=== PATIENT | female | born 1995 | race Hispanic/Latino ===

== ENCOUNTER 2017-04-02 13:44 | Emergency (ER) | payer OTHER ==
[2017-04-02 13:44] VITALS: BMI 44.7
[2017-04-02 14:11] VITALS: BP 137/85; RESP 18
[2017-04-02] MEDS ORDERED: Sodium Chloride 0.9% 500 ML IV STA (14:31)
--- NOTE | 2017-04-02 14:34 | ED PDOC ---
Arrival/HPI - General Historian: Patient - History of Present Illness Time/Duration: 1 week Symptom Onset: Sudden Symptom Course: Unchanged Quality: Unable to Describe Severity Level: Mild, Moderate - General Chief Complaint: Abdominal Pain Time Seen by Provider: 04/02/17 14:14 - History of Present Illness Narrative History of Present Illness (Text): 04/02/17 14:32 21F w/PMH sig for psoriasis, morbid obesity evaluated for emesis x 1 wk. Pt reports sudden onset of emesis with food intake, emesis is nbnb, only food items. Able to tolerate water intake. Admits to occasional nausea, has had similar episode in the past related to starving herself then eating. Denies F/C , SOB, CP, anorexia prior to event, ab pain, numbness or tingling, other complaints. PMH: Psoriasis, morbid obesity PSH: Denies ALl: Zofran (rash) SH: Admits to ETOH use (1-2 drinks per wk), admits to tobacco use- 1/2ppd x 2 yrs, denies illicit drug use PMD: Denies (Henny Avila) Past Medical History - Provider Review Nursing Documentation Reviewed: Yes - Cardiac Hx Cardiac Disorders: No - Pulmonary Hx Respiratory Disorders: No - Neurological Hx Neurological Disorder: No - HEENT Hx HEENT Disorder: No - Renal Hx Renal Disorder: No - Endocrine/Metabolic Hx Endocrine Disorders: No - Hematological/Oncological Hx Blood Disorders: No - Integumentary Hx Dermatological Disorder: No - Musculoskeletal/Rheumatological Hx Musculoskeletal Disorders: No - Gastrointestinal Hx Gastrointestinal Disorders: No - Genitourinary/Gynecological Hx Genitourinary Disorders: No - Psychiatric Hx Psychophysiologic Disorder: No Hx Substance Use: No Family/Social History - Physician Review Nursing Documentation Reviewed: Yes Family/Social History: No Known Family HX Smoking Status: Light Smoker < 10 Cigarettes Daily Hx Alcohol Use: No Hx Substance Use: No Allergies/Home Meds Allergies/Adverse Reactions: Allergies ondansetron HCl [From Zofran (as hydrochloride)] Adverse Reaction (Verified 10:17) Review of Systems - Review of Systems Constitutional: Normal. absent: Fatigue, Fevers Eyes: Vision Changes. absent: Normal ENT: Normal. absent: Sore Throat, Rhinorrhea Respiratory: Normal. absent: SOB Cardiovascular: Normal. absent: Chest Pain Gastrointestinal: Nausea, Vomiting, Food Intolerance. absent: Normal, Abdominal Pain, Constipation, Diarrhea, Hematochezia, Hematemesis Genitourinary Female: Frequency. absent: Normal, Dysuria, Hematuria Musculoskeletal: Normal. absent: Back Pain Skin: Rash (psoriasis). absent: Normal Neurological: Headache (nightly), Dizziness (occasional) Endocrine: Polyuria Physical Exam Vital Signs Reviewed: Yes Temperature: Afebrile Blood Pressure: Normal Pulse: Regular Respiratory Rate: Normal Appearance: Positive for: Non-Toxic, Comfortable Pain Distress: None Mental Status: Positive for: Alert and Oriented X 3 - Systems Exam Head: Present: Atraumatic, Normocephalic Extroacular Muscles: Present: EOMI Conjunctiva: Present: Normal Mouth: Present: Moist Mucous Membranes Nose (External): Present: Atraumatic Neck: Present: Normal Range of Motion Respiratory/Chest: Present: Clear to Auscultation, Good Air Exchange. No: Respiratory Distress, Accessory Muscle Use Cardiovascular: Present: Regular Rate and Rhythm, Normal S1, S2. No: Murmurs Abdomen: Present: Tenderness (mild, suprapubic), Normal Bowel Sounds. No: Distention (obese), Peritoneal Signs, Rebound, Guarding, Hernias Back: Present: Normal Inspection. No: CVA Tenderness Upper Extremity: Present: Normal Inspection. No: Cyanosis, Edema Lower Extremity: Present: Normal Inspection. No: Edema Neurological: Present: GCS=15, CN II-XII Intact, Speech Normal Skin: Present: Warm, Dry, Rashes (lesion on anterior aspect of LLE), Normal Color Psychiatric: Present: Alert, Oriented x 3, Normal Insight, Normal Concentration Vital Signs Temp Pulse Resp BP Pulse Ox 04/02/17 17:12 97.9 F 77 18 100 04/02/17 14:00 98.7 F 90 18 137/85 97 Medical Decision Making ED Course and Treatment: 04/02/17 14:40 Pt seen/evaluated, will evaluate for , UTI, and chemical imbalances. 04/02/17 15:58 lab work WNL. Discussed case with ED attending. Will d/c home on pepcid with dietary modification recommendations and recommendation to FU with the [facility] clinic or a PMD of her choosing. (Henny Avila) abdomen is bengin on my exam and the pt denies any abdominal pain or nausea at this time. do not feel imaging is warranted at this time but encouraged the pt to return should her sx recur. (Cristi Penny) - Lab Interpretations Lab Results: 04/02/17 14:50 04/02/17 14:50 Lab Results 04/02/17 14:50: Beta HCG, Quant < 2.39 04/02/17 14:50: Sodium 141, Potassium 4.4, Chloride 101, Carbon Dioxide 31, Anion Gap 13, BUN 13, Creatinine 0.6 L, Est GFR ( Amer) > 60, Est GFR ( Non-Af Amer) > 60, Random Glucose 100, Calcium 9.6, Total Bilirubin 0.4, AST 27 , ALT 44, Alkaline Phosphatase 83, Total Protein 7.4, Albumin 4.3, Globulin 3.0 , Albumin/Globulin Ratio 1.4, Lipase 41 04/02/17 14:50: WBC 9.2, RBC 4.59, Hgb 13.7, Hct 41.2, MCV 89.8, MCH 29.8, MCHC 33.3, RDW 12.8, Plt Count 345, MPV 9.5, Gran % 60.7, Lymph % (Auto) 29.5, [place] % (Auto) 5.2, Eos % (Auto) 4.3, Baso % (Auto) 0.3, Gran # 5.59, Lymph # 2.7, [place] # 0.5, Eos # 0.4, Baso # 0.03 04/02/17 14:00: Urine Color Yellow, Urine Appearance Sl cloudy, Urine pH 6.0, Ur Specific [place] >= 1.030, Urine Protein Negative, Urine Glucose (UA) Negative, Urine Ketones Negative, Urine Blood Trace-intact H, Urine Nitrate Negative, Urine Bilirubin Negative, Urine Urobilinogen 0.2, Ur Leukocyte Esterase Trace H, Urine RBC 0 - 2, Urine WBC 0 - 2, Ur Epithelial Cells 1 - 3 - Medication Orders Current Medication Orders: Discontinued Medications Sodium Chloride (Sodium Chloride 0.9%) 500 mls @ 999 mls/hr IV .Q31M STA Stop: 04/02/17 15:01 Last Admin: 04/02/17 14:44 Dose: 999 mls/hr eMAR Start Stop Document 04/02/17 14:44 TN (Rec: 04/02/17 14:44 [place] [id number]) Intravenous Solution Start Date 04/02/17 Start Time 14:44 Sodium Chloride (Sodium Chloride 0.9%) 1,000 mls @ 999 mls/hr IV .Q1H1M STA Stop: 04/02/17 16:37 Last Admin: 04/02/17 15:47 Dose: 999 mls/hr eMAR Start Stop Document 04/02/17 15:47 EQ (Rec: 04/02/17 15:47 EQ [id number]) Intravenous Solution Start Date 04/02/17 Start Time 15:47 Disposition/Present on Arrival - Present on Arrival Any Indicators Present on Arrival: No History of DVT/PE: No History of Uncontrolled Diabetes: No Urinary Catheter: No History of Decub. Ulcer: No History Surgical Site Infection Following: None - Disposition Have Diagnosis and Disposition been Completed?: Yes Disposition Time: 15:47 Patient Plan: Discharge - Disposition Diagnosis: Nausea & vomiting, Nonspecific abdominal pain Disposition: HOME/ ROUTINE Condition: STABLE Discharge Instructions (ExitCare): Low Fat Diet (DC), Weight Management (ED), Acute Nausea and Vomiting (ED), DASH Eating Plan (ED) Additional Instructions: Please follow a low fat, high fiber, lots of vegetables, moderate amount of fruits and lots of water diet for at least 2 weeks. Avoid fatty foods (e.g. pizza). You are being discharged on an antacid medication, please take for 2 weeks. Follow up with the Clinic for further evaluation. Prescriptions: Famotidine [Pepcid] 20 mg PO DAILY #14 tab Referrals: PCP,NO [Primary Care Provider] - Follow up with primary [facility] [place] - Follow up with primary [facility] [Outside] - Follow up with primary Forms: [employer] (Chinese), WORK NOTE
[2017-04-02 15:00] LABS: URINE BILIRUBIN NEGATIVE (NEGATIVE); URINE BLOOD TRACE-INTACT (NEGATIVE); URINE GLUCOSE (UA) NEGATIVE (NEGATIVE); URINE KETONE NEGATIVE (NEGATIVE); URINE LEUKOCYTE ESTERASE TRACE Leu/uL (NEGATIVE); URINE PROTEIN NEGATIVE mg/dL (<30 mg/dL); URINE UROBILINOGEN 0.2 E.U./dL (<1 E.U./dL)
[2017-04-02 15:04] LABS: BASO # 0.03 K/mm3 (0.0-2.0); BASO % 0.3 % (0.0-3.0); EOS # 0.4 (0.0-0.7); EOS % 4.3 % (1.5-5.0); GRAN # 5.59 (1.4-6.5); GRAN % 60.7 % (50.0-68.0); HEMATOCRIT 41.2 % (36.0-48.0); LYMPH # 2.7 (1.2-3.4); LYMPH % 29.5 % (22.0-35.0); MEAN CELL VOLUME 89.8 fl (80.0-105.0); MEAN CORPUSCULAR HEMOGLOBIN 29.8 pg (25.0-35.0); MEAN CORPUSCULAR HGB CONC 33.3 g/dl (31.0-37.0); MEAN PLATELET VOLUME 9.5 fl (7.0-11.0); MONO # 0.5 (0.1-0.6); MONO % 5.2 % (1.0-6.0); RED CELL DISTRIBUTION WIDTH 12.8 % (11.5-14.5); WHITE BLOOD COUNT 9.2 10^3/ul (4.5-11.0)
[2017-04-02 15:04] LABS: URINE APPEARANCE SL CLOUDY (CLEAR); URINE COLOR YELLOW (YELLOW)
[2017-04-02 15:12] LABS: URINE RBC 0 - 2 /hpf (0-2); URINE WBC 0 - 2 /hpf (0-6)
[2017-04-02 15:18] LABS: ALB/GLOB RATIO 1.4 (1.1-1.8); ALKALINE PHOSPHATASE 83 U/L (38-126); ALT/SGPT 44 U/L (7-56); AST/SGOT 27 U/L (14-36); BILIRUBIN,TOTAL 0.4 mg/dL (0.2-1.3); BLOOD UREA NITROGEN 13 mg/dL (7-21); CALCIUM 9.6 mg/dL (8.4-10.5); CARBON DIOXIDE 31 mmol/L (21-33); CHLORIDE 101 mmol/L (98-107); GFR AFRICAN-AMERICAN > 60; GLUCOSE,RANDOM 100 mg/dL (70-110); LIPASE 41 U/L (23-300); POTASSIUM 4.4 mmol/L (3.6-5.0); SODIUM 141 mmol/L (132-148); TOTAL PROTEIN 7.4 g/dL (5.8-8.3)
[2017-04-02] MEDS ORDERED: Sodium Chloride 0.9% 1,000 ML IV STA (15:37)
[2017-04-02 17:14] VITALS: PULSE 77; TEMP 97.9; O2SAT 100
== END 2017-04-02 17:32 | disposition home or self-care (01) ==
LOC: ED 13:44
DX: R10.9 Unspecified abdominal pain (principal); R11.2 Nausea with vomiting, unspecified; E66.01 Morbid (severe) obesity due to excess calories; F17.210 Nicotine dependence, cigarettes, uncomplicated
CPT/HCPCS: 80053; 81001; 83690; 84702; 85025; 99284; J7040

== ENCOUNTER 2017-06-28 17:10 | Emergency (ER) | payer OTHER ==
[2017-06-28 17:36] VITALS: RESP 18; TEMP 98.6; BMI 39.9
--- NOTE | 2017-06-28 20:08 | ED PDOC ---
Arrival/HPI - General Chief Complaint: Lower Extremity Problem/Injury Time Seen by Provider: 06/28/17 18:30 Historian: Patient - History of Present Illness Narrative History of Present Illness (Text): 06/28/17 20:44 22-year-old female presents today with left foot and ankle pain status post injury yesterday patient states while at work she got her ankle crushed between the wall and a machine that lifts pallets. pt states she was seen at her Worker[facility] s [facility]. facility and had x-rays and was told nothing was broken. Patient returned to work today and has been having continued pain and swelling to the left ankle and foot. Patient denies numbness weakness or tingling in the extremity patient complains of pain to the lateral aspect of the ankle. No fevers or chills. Denies calf pain. No other complaints Past Medical History - Provider Review Nursing Documentation Reviewed: Yes - Travel History Have you recently traveled outside [place] w/in the past 3 mons?: No - Cardiac Hx Cardiac Disorders: No - Pulmonary Hx Respiratory Disorders: No - Neurological Hx Neurological Disorder: No - HEENT Hx HEENT Disorder: No - Renal Hx Renal Disorder: No - Endocrine/Metabolic Hx Endocrine Disorders: No - Hematological/Oncological Hx Blood Disorders: No - Integumentary Hx Dermatological Disorder: No - Musculoskeletal/Rheumatological Hx Musculoskeletal Disorders: No - Gastrointestinal Hx Gastrointestinal Disorders: No - Genitourinary/Gynecological Hx Genitourinary Disorders: No - Psychiatric Hx Psychophysiologic Disorder: No Hx Substance Use: No Family/Social History - Physician Review Nursing Documentation Reviewed: Yes Family/Social History: Unknown Family HX Smoking Status: Light Smoker < 10 Cigarettes Daily Hx Alcohol Use: No Hx Substance Use: No Allergies/Home Meds Allergies/Adverse Reactions: Allergies ondansetron HCl [From Zofran (as hydrochloride)] Adverse Reaction (Verified 05/05 17:37) RASH Home Medications: Home Meds Medication Instructions Recorded Confirmed Ibuprofen [Motrin] 600 mg PO PRN PRN 06/28/17 06/28/17 Review of Systems - Review of Systems Constitutional: absent: Fatigue, Fevers Respiratory: absent: SOB, Cough Cardiovascular: absent: Chest Pain, Palpitations Gastrointestinal: absent: Abdominal Pain, Nausea, Vomiting Genitourinary Female: absent: Dysuria Musculoskeletal: Arthralgias. absent: Back Pain, Neck Pain Skin: absent: Laceration, Abscess, Cellulitis Neurological: absent: Headache, Dizziness Psychiatric: absent: Anxiety, Depression Physical Exam Vital Signs Reviewed: Yes Vital Signs Temp Pulse Resp BP Pulse Ox 06/28/17 17:30 98.6 F 92 H 18 107/71 98 Temperature: Afebrile Blood Pressure: Normal Pulse: Regular Respiratory Rate: Normal Appearance: Positive for: Well-Appearing, Non-Toxic, Comfortable Pain Distress: None Mental Status: Positive for: Alert and Oriented X 3 - Systems Exam Head: Present: Atraumatic Mouth: Present: Moist Mucous Membranes Neck: Present: Normal Range of Motion Respiratory/Chest: Present: Clear to Auscultation, Good Air Exchange. No: Respiratory Distress, Accessory Muscle Use Cardiovascular: Present: Regular Rate and Rhythm, Normal S1, S2. No: Murmurs Lower Extremity: Present: NORMAL PULSES, Normal ROM, Tenderness (left ankle/foot ; + edema to foot and ankle with tenderness over the lateral malleolus; no calf tenderness; sensation and distal pulses intact. cap refill <2. no erythema.), Swelling, Neurovascularly Intact, Capillary Refill < 2 s. No: CALF TENDERNESS, Erythema Neurological: Present: GCS=15, Speech Normal Skin: Present: Warm, Dry, Normal Color Psychiatric: Present: Alert, Oriented x 3 Medical Decision Making ED Course and Treatment: 06/28/17 20:47 Patient nontoxic well-appearing in no distress with stable vital signs X-rays of the left ankle and foot: No fracture Toradol given for pain Patient placed in short leg splint. crutches given for ambulation. I discussed all results in depth with the patient advised to followup with the orthopedist within the next 2 days. Advised return if symptoms worsen persist or new symptoms develop Patient verbalizes understanding of discharge instructions and need for immediate followup. all aspects of this case were discussed the attending of record. Impression: Ankle pain Motrin every 6 hours as needed for pain Rest, ice, compression, elevation Use crutches for ambulation Followup with the orthopedist within the next 2 days Followup with primary care physician within the next 2 days Return if symptoms worsen persist or if new symptoms develop - RAD Interpretation Radiology Orders: 06/28/17 18:30 ANKLE LEFT 3 VIEWS ROUTINE [RAD] Stat FOOT LEFT 3 VIEWS ROUTINE [RAD] Stat - Medication Orders Current Medication Orders: Discontinued Medications Ketorolac Tromethamine (Toradol) 60 mg IM STAT STA Stop: 06/28/17 18:31 Last Admin: 06/28/17 18:39 Dose: 60 mg MAR Pain Assessment Document 06/28/17 18:39 SZJade (Rec: 06/28/17 18:39 [email or web address]) Pain Reassessment Is this a pain reassessment? No Sleep Is patient sleeping during reassessment? No Presence of Pain Presence of Pain Yes Pain Scale Used Pain Scale Used Numeric Description Description Intermittent IM Administration Charges Document 06/28/17 18:39 MINERVA (Rec: 06/28/17 18:39 [email or web address]) Charges for Administration # of IM Administrations 1 Re-Assess: MAR Pain Assessment Document 06/28/17 19:39 MINERVA (Rec: 06/28/17 19:56 [email or web address]) Pain Reassessment Is this a pain reassessment? Yes Sleep Is patient sleeping during reassessment? No Presence of Pain Presence of Pain Yes Pain Scale Used Pain Scale Used Numeric Description Description Intermittent Intensity of Pain at present 3 Procedures - Splinting Location: left ankle/foot pain Hand-Made Type: fiberglass Splint: posterior short leg splint Pre-Proc Neuro Vasc Exam: normal Post-Proc Neuro Vasc Exam: normal Disposition/Present on Arrival - Present on Arrival Any Indicators Present on Arrival: No History of DVT/PE: No History of Uncontrolled Diabetes: No Urinary Catheter: No History of Decub. Ulcer: No History Surgical Site Infection Following: None - Disposition Have Diagnosis and Disposition been Completed?: Yes Diagnosis: Ankle pain, Foot pain Disposition: HOME/ ROUTINE Disposition Time: 20:03 Patient Plan: Discharge Condition: GOOD Discharge Instructions (ExitCare): Arthralgia (ED) Additional Instructions: Motrin every 6 hours as needed for pain Rest, ice, compression, elevation Use crutches for ambulation Followup with the orthopedist within the next 2 days Followup with primary care physician within the next 2 days Return if symptoms worsen persist or if new symptoms develop Referrals: Andrés Vasquez MD [Staff Provider] - Follow up with primary Artur Shepherd DO [Staff Provider] - Follow up with primary Forms: [employer] (Omani), WORK NOTE
[2017-06-28 20:29] VITALS: BP 115/87; PULSE 89; O2SAT 100
--- NOTE | 2017-06-29 09:51 | RAD ---
PROCEDURE: Left Ankle Radiographs. HISTORY: crush injury yesterday. pain COMPARISON: None FINDINGS: BONES: Normal. No fracture. JOINTS: Normal. No osteoarthritis. Ankle mortise maintained. Talar dome intact SOFT TISSUES: Normal. OTHER FINDINGS: None. IMPRESSION: Normal left ankle radiographs.
--- NOTE | 2017-06-29 09:54 | RAD ---
PROCEDURE: Left Foot Radiographs. HISTORY: foot pain COMPARISON: None. FINDINGS: BONES: Normal. No fracture. JOINTS: Normal. SOFT TISSUES: Normal. OTHER FINDINGS: None. IMPRESSION: Normal left foot radiographs.
== END 2017-06-28 20:29 | disposition home or self-care (01) ==
LOC: ED 17:10
DX: M25.572 Pain in left ankle and joints of left foot (principal); M79.672 Pain in left foot; F17.210 Nicotine dependence, cigarettes, uncomplicated
CPT/HCPCS: 73610; 73630; 96372; 99283; J1885